=== PATIENT | male | born 2000 | race African-American/Black ===

== ENCOUNTER 2022-05-08 03:59 | Emergency (ER) | payer SELFPAY ==
[~2022-05-08] VITALS: Ht 177.8 cm; Wt 68.2 kg
[2022-05-08 04:14] VITALS: BP 135/75
[2022-05-08] MEDS ORDERED: LIDOcaine 1% W/epiNEPHrine 1:100,000 20ml vial SQ ONE (04:40)
--- NOTE | 2022-05-08 04:55 | NUR ---
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
== END 2022-05-08 05:00 | disposition left against medical advice (07) ==
LOC: EDBD 04:00 → ER 04:00
DX: S61.412A Laceration without foreign body of left hand, initial encounter (principal); Y04.8XXA Assault by other bodily force, initial encounter; Y93.89 Activity, other specified; Y92.89 Other specified places as the place of occurrence of the external cause; Y99.8 Other external cause status
CPT/HCPCS: 99281

== ENCOUNTER 2022-05-08 08:42 | Emergency (ER) | payer SELFPAY ==
[~2022-05-08] VITALS: Ht 180.3 cm; Wt 68.2 kg
[2022-05-08 08:50] VITALS: BP 122/77
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
== END 2022-05-08 10:33 | disposition left against medical advice (07) ==
LOC: ER 08:43
DX: S61.411A Laceration without foreign body of right hand, initial encounter (principal); Z53.21 Procedure and treatment not carried out due to patient leaving prior to being seen by health care provider; X58.XXXA Exposure to other specified factors, initial encounter; Y93.89 Activity, other specified; Y92.89 Other specified places as the place of occurrence of the external cause; Y99.8 Other external cause status